=== PATIENT | female | born 1935 | race Caucasian/White ===

== ENCOUNTER 2024-12-08 10:15 | Outpatient (RCR) | payer MEDICARE, OTHER, SELFPAY | END 2025-02-08 09:42 | disposition home or self-care (01) | PROVIDERS: PCP Family Medicine; Visit Provider Family Medicine | DX: M25.562 Pain in left knee (principal); G89.29 Other chronic pain; Z51.89 Encounter for other specified aftercare | CPT/HCPCS: 97110; 97140; 97161 ==